=== PATIENT | female | born 1975 | race Caucasian/White ===

== ENCOUNTER → 2019-11-16 | Day surgery (SDC) | payer BC, OTHER ==
[~2019-11-16] MED LIST: BUPIVACAINE 0.25%/EPI 30ML SDV INJ ONE; CEFAZOLIN SOD 1 GM/NS 50ML 100 ML IV ONE; DEXAMETHASONE SOD PHOS INJ 4 MG/ML VIAL ONE; FENTANYL CITRATE/PF 100MCG/2 ML INJ ONE; IBUPROFEN200 MG PO; KETOROLAC TROMETHAMINE 30 MG/ML VIAL ONE; LIDOCAINE HCL 2% LOCAL INJ 5 ML SDV VIAL INJ ONE; MEPERIDINE HCL INJ 25 MG/ML VIAL ONE; MIDAZOLAM HCL 2 MG/2 ML VIAL ONE; ONDANSETRON HCL INJ 2MG/ML 2ML 2 MG/ML VIAL ONE; PROPOFOL IV EMULSION 10 MG/ML 20 ML VIAL ONE; SEVOFLURANE INHAL SOLN 250 ML PEN BTL ONE; TYLENOL EXTRA500 MG PO
--- NOTE | 2019-11-16 07:10 | NUR ---
SPIRITUAL CARE - Pre-Surgery Assessment: Pt in bed. Pt reported supportive attention from family and friends. Intervention: Stockroom Helper provided pastoral presence, hospitality, and sympathetic listening. Acquainted pt with availability of snuff container inspector while hospitalized. Outcome: Pt expressed appreciation for visit. No need for follow up indicated at this time. K[facility] Spiritual Care Department O: [phone]
[2019-11-16 09:55] VITALS: BP 125/78
--- NOTE | 2019-11-24 21:56 | Operative Report ---
DATE OF PROCEDURE: 11/16/2019 SURGEON: Grant Mclaughlin MD PREOPERATIVE DIAGNOSES: 1. Left knee medial meniscus tear. 2. Left knee lateral meniscus tear. 3. Left knee degenerative joint disease of the knee. POSTOPERATIVE DIAGNOSES: 1. Left knee medial meniscus tear. 2. Left knee lateral meniscus tear. 3. Left knee degenerative joint disease of the knee. OPERATIONS/PROCEDURES PERFORMED: The patient underwent a left knee exam under anesthesia, left knee arthroscopy, left knee partial medial meniscectomy, left knee partial lateral meniscectomy, left knee chondroplasty of the patella, trochlea, the medial femoral condyle and medial tibial plateau and the lateral tibial plateau. HOG STOMACH PREPARER: There was no real estate legal assistant. ANESTHESIA: General endotracheal intubation anesthesia. IV FLUIDS: Per anesthesia record. COMPLICATIONS: None. BRIEF DESCRIPTION OF THE PATIENT'S OPERATIVE PROCEDURE: Ms. Parsons was taken to the operating room and placed in supine position on the operating table. Following induction of general anesthesia as well as the endotracheal intubation, the patient's left lower extremity was examined under anesthesia. She was found to have a mild effusion within the knee joint, but an otherwise ligamentously stable knee. The patient's lower extremity was prepped and draped in surgical fashion. A two-port technique was used to provide this patient arthroscopic evaluation of the knee joint. Examination of the suprapatellar pouch, medial and lateral gutters found no evidence of loose bodies. There was however evidence of chondromalacia of the patella and trochlear surfaces. The scope was advanced to the medial compartment. Examination of medial compartment demonstrated a torn medial meniscus. There was also chondromalacia articulating surfaces. A combination of biting forceps and a motorized shaver were used to resect the torn portion of the meniscus. Chondroplasties of the medial femoral condyle and medial tibial plateau performed at this time. Scope was advanced to the intercondylar notch and the anterior cruciate ligament was found to be slightly frayed, but otherwise intact. The scope was then advanced into the lateral compartment and there was chondromalacia of the lateral tibial plateau. A chondroplasty of the surface was performed. The scope was then placed in suprapatellar pouch and chondroplasties of the patella and trochlea were performed. The knee was deflated with sterile normal saline. Each portal sites were closed using 4-0 nylon suture. The portal sites as well as the knee itself were injected with 0.5% Marcaine with epinephrine. Sterile dressings were applied. The patient was then awakened and taken to postanesthesia care in stable condition. MD FREDY Macias/ANTONIA /[id number]
== END | disposition home or self-care (01) ==
LOC: OR 05:55
PROVIDERS: ATTEND Specialist
DX: S83.262A Peripheral tear of lateral meniscus, current injury, left knee, initial encounter (principal); S83.222A Peripheral tear of medial meniscus, current injury, left knee, initial encounter; M17.12 Unilateral primary osteoarthritis, left knee; I10 Essential (primary) hypertension; F17.210 Nicotine dependence, cigarettes, uncomplicated; Z11.59 Encounter for screening for other viral diseases
CPT/HCPCS: 29880; 81025; 87635; J0690; J1100; J1885; J2001; J2175; J2250; J2405; J2704; J3010